=== PATIENT | female | born 1990 | race Caucasian/White ===

== ENCOUNTER → 2017-05-24 | Outpatient (CLI) | payer OTHER ==
[~2017-05-24] VITALS: Ht 176.5 cm; Wt 107.3 kg
[~2017-05-24] MED LIST: B-121000 MCG SL; CALCIUM CARB W/1 TA1 PO; LOESTRIN1.5/30 21DAY PO; MULTIPLE VITAMI1 TA5 PO; VITAMIN D31000 IU PO
[2017-05-24 13:15] VITALS: BP 124/74; PULSE 72
== END ==
LOC: LIGHT 13:05
DX: Z01.89 Encounter for other specified special examinations (principal)

== ENCOUNTER → 2017-06-07 | Outpatient (CLI) | payer OTHER ==
[~2017-06-07] VITALS: Ht 176.5 cm; Wt 108.4 kg
[2017-06-07 16:30] VITALS: BP 112/78; PULSE 80
== END ==
LOC: LIGHT 09:19
DX: E66.01 Morbid (severe) obesity due to excess calories (principal); Z68.34 Body mass index [BMI] 34.0-34.9, adult; Z71.3 Dietary counseling and surveillance
CPT/HCPCS: G0463

== ENCOUNTER → 2017-06-22 | Outpatient (CLI) | payer OTHER | LOC: LIGHT 14:43 | DX: Z01.89 Encounter for other specified special examinations (principal) ==

== ENCOUNTER → 2017-07-22 | Outpatient (CLI) | payer OTHER ==
[~2017-07-22] VITALS: Ht 176.5 cm; Wt 109.5 kg
[~2017-07-22] MED LIST changes: +FASTIN30 MG PO
[2017-07-22 16:18] VITALS: BP 136/76; PULSE 96
== END ==
LOC: LIGHT 15:55
DX: E66.9 Obesity, unspecified (principal); Z68.35 Body mass index [BMI] 35.0-35.9, adult; Z71.3 Dietary counseling and surveillance
CPT/HCPCS: G0463

== ENCOUNTER → 2017-09-02 | Outpatient (CLI) | payer OTHER ==
[~2017-09-02] VITALS: Ht 176.5 cm; Wt 105.2 kg
[~2017-09-02] MED LIST changes: +ADIPEX-P37.5 MG PO; -FASTIN30 MG PO
[2017-09-02 16:37] VITALS: BP 132/90; PULSE 80
== END ==
LOC: LIGHT 14:33
DX: E66.9 Obesity, unspecified (principal); Z68.33 Body mass index [BMI] 33.0-33.9, adult; Z71.3 Dietary counseling and surveillance
CPT/HCPCS: G0463